=== PATIENT | female | born 1990 | race Caucasian/White ===

== ENCOUNTER 2018-09-11 10:14 | Outpatient (CLI) | payer OTHER ==
--- NOTE | 2018-09-11 11:14 | MRI ---
MRI Lumbar Spine Noncontrast: HISTORY: Low back pain with occasional radiation of pain into bilateral lower extremities greater on the left. COMPARISON: None FINDINGS: Conus medullaris is normal in morphology and terminates at the L1 level. Mild endplate degenerative changes are seen at the L5-S1 level. A small subcentimeter increased T2-weighted signal intensity lesion is seen in the midportion right [place] difficult to further characterize but statistically likely represents a small cyst. The remainder of the retroperitoneal structures demonstrate grossly normal noncontrast MRI appearance. L1-2:There is no disc bulge or disc herniation. Central spinal canal and neural foramina are patent. L2-3:There is no disc bulge or disc herniation. Central spinal canal and neural foramina are patent L3-4:There is no disc bulge or disc herniation. Central spinal canal and neural foramina are patent. L4-5:There is no disc bulge or disc herniation. Central spinal canal and neural foramina are patent. L5-S1:There is loss of intervertebral disc height. There is a broad-based disc osteophyte complex wit h a central disc protrusion/extrusion. The centrally located disc extrusion measures approximately 11 mm AP x 15 mm transverse. This disc extrusion does contact the bilateral traversing nerve roots wi th suggestion of mild deformity of the nerve roots. Correlation for S1 radiculopathy bilaterally is recommended. There is mild effacement of the ventral aspect of the thecal sac at this level. Mild ina ateral neural foraminal narrowing is present. IMPRESSION: Disc osteophyte complex with central disc extrusion at the L5-S1 level which likely affects the bilat eral traversing S1 nerve roots. Clinical correlation bilateral S1 radiculopathy is suggested.
== END 2018-09-11 10:15 | disposition home or self-care (01) ==
LOC: BICMRI 10:14
PROVIDERS: ATTEND Family Medicine
DX: M54.5 Low back pain (principal); M51.27 Other intervertebral disc displacement, lumbosacral region
CPT/HCPCS: 72148

== ENCOUNTER 2019-01-09 09:10 | Outpatient (CLI) | payer OTHER ==
--- NOTE | 2019-01-09 09:28 | RAD ---
Exam: 2 views lumbar spine HISTORY: Lumbar radiculopathy. Previous surgery. FINDINGS: 5 lumbar type vertebra. Unilateral left-sided transpedicular screw at L5 and S1. No perihar dware lucency with regards to either screw. Disc prosthesis is noted. No significant spondylolisthesis. IMPRESSION: Uncomplicated lumbar fusion.
== END 2019-01-09 09:11 | disposition home or self-care (01) ==
LOC: TBSIIMAG 09:10
PROVIDERS: ATTEND Neurological Surgery
DX: M54.16 Radiculopathy, lumbar region (principal); Z98.1 Arthrodesis status
CPT/HCPCS: 72100